=== PATIENT | male | born 1995 | race Caucasian/White ===

== ENCOUNTER 2017-04-06 14:33 | Emergency (ER) | payer BC ==
--- NOTE | 2017-04-06 15:05 | ERPHSYRPT ---
- History of Present Illness Time Seen by Provider: 04/06/17 14:54 Historian: patient Exam Limitations: no limitations Patient Subjective Stated Complaint: pt here for sorethroat for a couple days vomited x2 today. pt states last time he vomited it had blood in it,pt states he had bright red blood ,more than streaks Triage Nursing Assessment: pt alert, walked in, resp easy.skin w/d/p.abd soft with bs Physician History: 21-year-old white male who denies past medical or past surgical history arrives with complaint of sore throat going on for 2 days he states she's been having a nausea for approximately 3 weeks he states he vomited 2 times today he states on the second time he vomited blood he states he has pain in his throat which is sharp no fevers. Patient denies melena or hematochezia. Past medical history is negative past surgical history negative Social history positive for tobacco occasional alcohol use Timing/Duration: other (nausea for about 3 weeks sore throat for 2 days vomiting since today) Abdominal Pain Onset Location: other (no abdominal pain) Severity of Pain-Max: none Severity of Pain-Current: none Associated Symptoms: nausea, vomiting, other (hemetemesis x1 today) Previous symptoms: no prior history Allergies/Adverse Reactions: No Known Drug Allergies Allergy (Verified 04/06/17 14:48) Home Medications: Citalopram Hydrobromide [Citalopram HBr] 20 mg DAILY 04/06/17 [History] Trazodone HCl 50 mg [Desyrel 50 mg] 50 mg DAILY 04/06/17 [History] Hx Tetanus, Diphtheria Vaccination/Date Given: Yes (up to date) Hx Influenza Vaccination/Date Given: Yes Hx Pneumococcal Vaccination/Date Given: No Immunizations Up to Date: Yes - Review of Systems Constitutional: No Fever, No Chills Eyes: No Symptoms Ears, Nose, & Throat: No Symptoms, Throat Pain, No Ear Pain, No Ear Discharge, No Hearing Changes, No Tinnitus, No Nose Pain, No Nose Congestion, No Nose Discharge, No Sinus Drainage, No Epistaxis, No Mouth Pain, No Mouth Swelling, No Loose Teeth, No Throat Swelling, No Hoarse, No Painful Swallowing, No Snoring , No Stridor Respiratory: No Cough, No Dyspnea Cardiac: No Chest Pain, No Edema, No Syncope Abdominal/Gastrointestinal: Nausea, Vomiting, No Abdominal Pain, No Diarrhea, No Constipation, No Hematemesis, No Hematochezia, No Melena, No Dysphagia, No Appetite Changes Genitourinary Symptoms: No Dysuria Musculoskeletal: No Symptoms Skin: No Rash Neurological: No Dizziness, No Focal Weakness, No Sensory Changes Psychological: No Symptoms Endocrine: No Symptoms All Other Systems: Reviewed and Negative - Past Medical History Pertinent Past Medical History: No - Past Surgical History Past Surgical History: No - Social History Smoking Status: Current every day smoker Exposure to second hand smoke: Yes Drug Use: none Patient Lives Alone: No - Nursing Vital Signs Nursing Vital Signs: Initial Vital Signs Temperature 98.2 F 04/06/17 14:40 Pulse Rate 109 H 04/06/17 14:40 Respiratory Rate 18 04/06/17 14:40 Blood Pressure 110/70 04/06/17 14:40 O2 Sat by Pulse Oximetry 97 04/06/17 14:40 Pain Scale Pain Intensity 0 - Physical Exam General Appearance: no apparent distress, alert Eye Exam: PERRL/EOMI, eyes nml inspection, other (fundi unremarkable) Ears, Nose, Throat Exam: TMs normal, moist mucous membranes, dry mucous membranes, pharyngeal erythema, No TM abnormal (R), No TM abnormal (L) Neck Exam: normal inspection, non-tender, supple, full range of motion Respiratory Exam: normal breath sounds, lungs clear, No respiratory distress Cardiovascular Exam: regular rate/rhythm, normal heart sounds Gastrointestinal/Abdomen Exam: soft, No tenderness, No mass Rectal Exam: normal exam, No black stool, No blood Back Exam: normal inspection, normal range of motion, No CVA tenderness, No vertebral tenderness Extremity Exam: normal inspection, normal range of motion, pelvis stable Neurologic Exam: alert, oriented x 3, cooperative, building rigger II-XII nml as tested, normal mood/affect, nml cerebellar function, sensation nml, No motor deficits Skin Exam: normal color, warm, dry SpO2 Interpretation: normal (97%) SpO2: 97 Oxygen Delivery: Room Air Ordered Tests: Active Orders 24 hr Category Date Time Status IV Insertion STAT Care 04/06/17 14:58 Active Orthostatic Vital Signs STAT Care 04/06/17 15:00 Active AMYLASE Stat Lab 04/06/17 15:10 Completed CBC W DIFF Stat Lab 04/06/17 15:10 Completed CMP Stat Lab 04/06/17 15:10 Completed CULTURE, THROAT Stat Lab 04/06/17 15:12 Received LIPASE Stat Lab 04/06/17 15:10 Completed Occult Blood,Stool Other Stat Lab 04/06/17 15:40 Completed STREP SCREEN-BETA A Stat Lab 04/06/17 15:12 Completed Medication Summary Discontinued Medications Generic Name Dose Route Start Last Admin Trade Name Get PRN Reason Stop Dose Admin Sodium Chloride 1,000 mls @ 999 mls/hr 04/06/17 14:58 04/06/17 15:37 Sodium Chloride 0.9% 1000 Ml IV 04/06/17 15:58 999 mls/hr .Q1H1M STA Administration Sodium Chloride Confirm 04/06/17 15:36 Sodium Chloride 0.9% 1000 Ml Administered 04/06/17 15:37 Dose 1,000 mls @ ud .ROUTE .STK-MED ONE Lab/Rad Data: Laboratory Result Diagrams 04/06/17 15:10 04/06/17 15:10 Laboratory Results 04/06/17 04/06/17 04/06/17 Range/Units 15:40 15:12 15:10 WBC (4.0-10.5) K/mm3 RBC (4.1-5.6) M/mm3 Hgb (12.5-18.0) gm/dl Hct (42-50) % MCV (78-100) fl MCH (26-32) pg MCHC (32-36) g/dl RDW (11.5-14.0) % Plt Count (150-450) K/mm3 MPV (6-9.5) fl Gran % (36.0-66.0) % Lymphocytes % (24.0-44.0) % Monocytes % (0.0-12.0) % Eosinophils % (0.00-5.0) % Basophils % (0.0-0.4) % Basophils # (0-0.4) Sodium 140 (136-145) mEq/L Potassium 4.4 (3.5-5.1) mEq/L Chloride 103 (98-107) mEq/L Carbon Dioxide 31.3 (21-32) mEq/L Anion Gap 9.9 (5-15) MEQ/L BUN 13 (9-20) mg/dL Creatinine 1.15 (0.55-1.30) mg/dl Estimated GFR > 60 ML/MIN Glucose 95 (70-110) MG/DL Calcium 9.4 (8.5-10.1) mg/dL Total Bilirubin 1.10 H (0.2-1.0) mg/dL AST 24 (15-37) U/L ALT 24 (12-78) U/L Alkaline Phosphatase 82 (46-116) U/L Serum Total Protein 7.7 (6.4-8.2) gm/dL Albumin 4.3 (3.4-5.0) g/dL Amylase 53 (25-115) U/L Lipase 98 (73-393) U/L Stool Occult Blood NEGATIVE (Negative) Streptococcus Screen NEGATIVE (Negative) 04/06/17 Range/Units 15:10 WBC 9.7 (4.0-10.5) K/mm3 RBC 5.30 (4.1-5.6) M/mm3 Hgb 16.0 (12.5-18.0) gm/dl Hct 47.7 (42-50) % MCV 90.0 (78-100) fl MCH 30.2 (26-32) pg MCHC 33.5 (32-36) g/dl RDW 12.5 (11.5-14.0) % Plt Count 223 (150-450) K/mm3 MPV 9.9 H (6-9.5) fl Gran % 85.4 H (36.0-66.0) % Lymphocytes % 6.7 L (24.0-44.0) % Monocytes % 6.9 (0.0-12.0) % Eosinophils % 0.9 (0.00-5.0) % Basophils % 0.1 (0.0-0.4) % Basophils # 0.01 (0-0.4) Sodium (136-145) mEq/L Potassium (3.5-5.1) mEq/L Chloride (98-107) mEq/L Carbon Dioxide (21-32) mEq/L Anion Gap (5-15) MEQ/L BUN (9-20) mg/dL Creatinine (0.55-1.30) mg/dl Estimated GFR ML/MIN Glucose (70-110) MG/DL Calcium (8.5-10.1) mg/dL Total Bilirubin (0.2-1.0) mg/dL AST (15-37) U/L ALT (12-78) U/L Alkaline Phosphatase (46-116) U/L Serum Total Protein (6.4-8.2) gm/dL Albumin (3.4-5.0) g/dL Amylase (25-115) U/L Lipase (73-393) U/L Stool Occult Blood (Negative) Streptococcus Screen (Negative) - Progress Progress: improved Progress Note: 04/06/17 16:25 Patient's labs are all stable. Strep is negative. Patient receiving 1 L normal saline. Patient had been offered Zofran prior to arrival doesn't want any. Will await the orthostatic vital signs after normal saline is in plan discharge if stable plenty of fluids, Tylenol. 04/06/17 16:57 Patient's orthostatic vital signs are stable will discharge 04/06/17 16:59 Patient offered an antirheumatic he does not want any - Departure Time of Disposition: 16:58 Departure Disposition: Home Clinical Impression: Viral pharyngitis, Gastroenteritis Vomiting Qualifiers: Vomiting type: unspecified Vomiting Intractability: non-intractable Nausea presence: with nausea Qualified Code(s): R11.2 - Nausea with vomiting, unspecified Hematemesis Qualifiers: Nausea presence: with nausea Qualified Code(s): K92.0 - Hematemesis Condition: Fair Critical Care Time: No Referrals: HARRY DACOSTA [Primary Care Provider] - Instructions: Vomiting -- Adult Additional Instructions: Return home. Plenty of fluids, clear fluids only 24-48 hours if nausea and vomiting. Follow-up with your family doctor if symptoms no better in 24-48 hours worse or persist longer than 72 hours. Return for acute distress or for severe symptoms. Tylenol every 4 hours as needed for pain.
[2017-04-06 15:19] LABS: BASOPHIL % 0.1 % (0.0-0.4); Basophil (Absolute #) 0.01 (0-0.4); Eosinophil % 0.9 % (0.00-5.0); Eosinophil (Absolute #) 0.09 (0-0.5); Granulocyte Absolute (ANC) 8.24 (1.4-6.9); Granulocytes % 85.4 % (36.0-66.0); Hematocrit 47.7 % (42-50); Lymphocyte (Absolute #) 0.65 (1.0-4.6); Lymphocytes % 6.7 % (24.0-44.0); Mean Corpuscular Hemoglobin 30.2 pg (26-32); Mean Corpuscular Hgb Concent. 33.5 g/dl (32-36); Mean Platelet Volume 9.9 fl (6-9.5); Monocyte (Absolute #) 0.67 (0.0-1.3); Monocytes % 6.9 % (0.0-12.0); Platelet Count 223 K/mm3 (150-450); Red Cell Distribution Width 12.5 % (11.5-14.0); White Blood Count 9.7 K/mm3 (4.0-10.5)
[2017-04-06] MEDS ORDERED: Sodium Chloride 0.9% 1000 ML 1,000 ML ONE (15:36)
[2017-04-06] MEDS: Sodium Chloride 0.9% 1000 ML 1,000 ML IV STA (15:37)
[2017-04-06 15:42] LABS: ALBUMIN 4.3 g/dL (3.4-5.0); ALKALINE PHOSPHATASE 82 U/L (46-116); AMYLASE 53 U/L (25-115); ANION GAP 9.9 MEQ/L (5-15); BLOOD UREA NITROGEN 13 mg/dL (9-20); CHLORIDE 103 mEq/L (98-107); Calcium 9.4 mg/dL (8.5-10.1); Carbon Dioxide 31.3 mEq/L (21-32); Creatinine 1 1.15 mg/dl (0.55-1.30); EST GLOMERULAR FILTRATION RATE > 60 ML/MIN; Glucose 95 MG/DL (70-110); LIPASE 98 U/L (73-393); Potassium 4.4 mEq/L (3.5-5.1); SGOT/AST 24 U/L (15-37); SGPT/ALT 24 U/L (12-78); SODIUM 140 mEq/L (136-145); Total Protein 7.7 gm/dL (6.4-8.2)
[2017-04-06 17:25] VITALS: BP 96/47; PULSE 100; O2SAT 99
== END 2017-04-06 17:45 | disposition home or self-care (01) ==
LOC: ED 14:33
DX: J02.9 Acute pharyngitis, unspecified (principal); K52.9 Noninfective gastroenteritis and colitis, unspecified; R11.2 Nausea with vomiting, unspecified; K92.0 Hematemesis; Z79.899 Other long term (current) drug therapy; Z72.0 Tobacco use
CPT/HCPCS: 36000; 36415; 80053; 82150; 82272; 83690; 85025; 87070; 87430; 96360; 99284

== ENCOUNTER 2017-04-22 15:09 | Emergency (ER) | payer BC ==
[2017-04-22 15:35] LABS: BASOPHIL % 0.6 % (0.0-0.4); Basophil (Absolute #) 0.04 (0-0.4); Eosinophil % 1.9 % (0.00-5.0); Eosinophil (Absolute #) 0.12 (0-0.5); Granulocyte Absolute (ANC) 4.32 (1.4-6.9); Granulocytes % 69.3 % (36.0-66.0); Hematocrit 46.6 % (42-50); Hemoglobin 15.9 gm/dl (12.5-18.0); Lymphocyte (Absolute #) 1.28 (1.0-4.6); Lymphocytes % 20.5 % (24.0-44.0); Mean Cell Volume 88.6 fl (78-100); Mean Corpuscular Hemoglobin 30.2 pg (26-32); Mean Corpuscular Hgb Concent. 34.1 g/dl (32-36); Mean Platelet Volume 9.6 fl (6-9.5); Monocyte (Absolute #) 0.48 (0.0-1.3); Monocytes % 7.7 % (0.0-12.0); Platelet Count 259 K/mm3 (150-450); Red Blood Count 5.26 M/mm3 (4.1-5.6); Red Cell Distribution Width 12.2 % (11.5-14.0); White Blood Count 6.2 K/mm3 (4.0-10.5)
[2017-04-22] MEDS ORDERED: Sodium Chloride 0.9% 1000 ML 1,000 ML IV STA ×2 (15:36→16:41)
[2017-04-22] MEDS ORDERED: Sodium Chloride 0.9% 1000 ML 1,000 ML ONE ×2 (15:38→16:43)
[2017-04-22 15:42] LABS: Amphetamine,Urine NEG. (NEGATIVE); Barbiturate,Urine NEG. (NEGATIVE); Benzodiazepine,Urine NEG. (NEGATIVE); Cocaine,Urine NEG. (NEGATIVE); Methadone,Urine NEG. (NEGATIVE); Opiate,Urine NEG. (NEGATIVE); PCP,Urine NEG. (NEGATIVE); THC,Urine POS. (NEGATIVE)
[2017-04-22 15:59] LABS: ALBUMIN 4.3 g/dL (3.4-5.0); ALKALINE PHOSPHATASE 78 U/L (46-116); ANION GAP 13.8 MEQ/L (5-15); BLOOD UREA NITROGEN 10 mg/dL (9-20); CHLORIDE 106 mEq/L (98-107); Calcium 9.4 mg/dL (8.5-10.1); Carbon Dioxide 24.7 mEq/L (21-32); Creatinine 1 1.05 mg/dl (0.55-1.30); EST GLOMERULAR FILTRATION RATE > 60 ML/MIN; Glucose 83 MG/DL (70-110); SGOT/AST 32 U/L (15-37); SGPT/ALT 26 U/L (12-78); SODIUM 141 mEq/L (136-145); Total Protein 7.8 gm/dL (6.4-8.2)
--- NOTE | 2017-04-22 16:17 | ERPHSYRPT ---
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 STATES HE HAS BEEN TAKING A WEIGHT LOSS SUPPLEMENT. Triage Nursing Assessment: PT PINK, WARM, DRY. ALERT AND ORIENTED X3. PT ARRIVED IN WHEELCHAIR FROM WAITING ROOM. PUPILS PERRL. Physician History: 21-year-old white male brought by his family with complaints of syncope at work. According to patient and his family patient was at work he began to feel shaky and then he passed out. Patient apparently has not eaten today he states he has not been otherwise ill. It is noted that the patient is taking a dietary supplement. Patient also states he took the medication for depression was out eating this morning Past medical history includes depression Past surgical history is negative Social history is positive for tobacco use and occasional alcohol use. Timing/Duration: today Severity: moderate Modifying Factors: Improves With: other (patient did not eat this morning) Associated Symptoms: syncope, No nausea, No vomiting, No abdominal pain, No shortness of breath, No heartburn, No diaphoresis, No cough, No chills, No chest pain, No fever, No headaches, No loss of appetite, No malaise, No rash, No seizure, No weakness Allergies/Adverse Reactions: No Known Drug Allergies Allergy (Verified 04/22/17 15:23) Home Medications: Citalopram Hydrobromide [Citalopram HBr] 20 mg PO DAILY 04/06/17 [History] Hx Tetanus, Diphtheria Vaccination/Date Given: Yes (UP TO DATE) Hx Influenza Vaccination/Date Given: No Hx Pneumococcal Vaccination/Date Given: No Immunizations Up to Date: Yes - Review of Systems Constitutional: No Fever, No Chills Eyes: No Symptoms Ears, Nose, & Throat: No Symptoms Respiratory: No Cough, No Dyspnea Cardiac: Syncope, No Chest Pain, No Edema Abdominal/Gastrointestinal: No Abdominal Pain, No Nausea, No Vomiting, No Diarrhea Genitourinary Symptoms: No Dysuria Musculoskeletal: No Back Pain, No Neck Pain Skin: No Rash Neurological: Tremors, Other (syncope), No Dizziness, No Focal Weakness, No Gait Changes, No Headache, No Irritability, No Lethargy, No Paralysis, No Parasthesia, No Seizure, No Sensory Changes, No Speech Changes, No Tics, No Vertigo Psychological: No Symptoms Endocrine: No Symptoms All Other Systems: Reviewed and Negative - Past Medical History Pertinent Past Medical History: No - Past Surgical History Past Surgical History: No - Social History Smoking Status: Current every day smoker How long have you smoked: 4 Exposure to second hand smoke: No Drug Use: none Patient Lives Alone: No - Nursing Vital Signs Nursing Vital Signs: Initial Vital Signs Temperature 98.8 F 04/22/17 15:16 Pulse Rate 83 04/22/17 15:16 Respiratory Rate 20 04/22/17 15:16 Blood Pressure 138/81 04/22/17 15:16 O2 Sat by Pulse Oximetry 99 04/22/17 15:16 Pain Scale Pain Intensity 0 - Physical Exam General Appearance: no apparent distress, alert Eye Exam: PERRL/EOMI, eyes nml inspection Ears, Nose, Throat Exam: normal ENT inspection, TMs normal, pharynx normal, moist mucous membranes Neck Exam: normal inspection, non-tender, supple, full range of motion Respiratory Exam: normal breath sounds, lungs clear, No respiratory distress Cardiovascular Exam: regular rate/rhythm, normal heart sounds, normal peripheral pulses Gastrointestinal/Abdomen Exam: soft, normal bowel sounds, No tenderness, No mass Back Exam: normal inspection, normal range of motion, No CVA tenderness, No vertebral tenderness Extremity Exam: normal inspection, normal range of motion, pelvis stable Neurologic Exam: alert, oriented x 3, cooperative, normal mood/affect, nml cerebellar function, nml station & gait, sensation nml, No motor deficits, No sensory deficit, No disoriented, No confusion, No facial droop, No slurred speech, No aphasia, No dysarthria, No abnormal gait, No abnormal cerebellar tests, No abnormal teacher aide clerical II-XII Skin Exam: normal color, warm, dry, No rash Lymphatic Exam: No adenopathy SpO2 Interpretation: normal (99%) SpO2: 99 Oxygen Delivery: Room Air - Course Nursing assessment & vital signs reviewed: Yes EKG Interpreted by Me: RATE (96 bpm), Other (EKG: Sinus arrhythmia, 96 bpm, normal axis, no acute ST or T wave changes, essentially normal EKG) Ordered Tests: Active Orders 24 hr Category Date Time Status Branch Sales Manager STAT Care 04/22/17 15:24 Active Clean Catch Urine Specimen STAT Care 04/22/17 15:31 Active EKG-ER Only STAT Care 04/22/17 15:24 Active IV Insertion STAT Care 04/22/17 15:24 Active Orthostatic Vital Signs STAT Care 04/22/17 16:06 Active CBC W DIFF Stat Lab 04/22/17 15:31 Completed CMP Stat Lab 04/22/17 15:31 Completed Urine Triage Profile Stat Lab 04/22/17 15:32 Completed Medication Summary Generic Name Dose Route Start Last Admin Trade Name Freq PRN Reason Stop Dose Admin Sodium Chloride 1,000 mls @ 999 mls/hr 04/22/17 16:41 04/22/17 16:43 Sodium Chloride 0.9% 1000 Ml IV 04/22/17 17:41 999 mls/hr .Q1H1M STA Administration Discontinued Medications Generic Name Dose Route Start Last Admin Trade Name Freq PRN Reason Stop Dose Admin Sodium Chloride 1,000 mls @ 999 mls/hr 04/22/17 15:36 04/22/17 15:40 Sodium Chloride 0.9% 1000 Ml IV 04/22/17 16:36 999 mls/hr .Q1H1M STA Administration Sodium Chloride Confirm 04/22/17 15:38 Sodium Chloride 0.9% 1000 Ml Administered 04/22/17 15:39 Dose 1,000 mls @ ud .ROUTE .STK-MED ONE Sodium Chloride Confirm 04/22/17 16:43 Sodium Chloride 0.9% 1000 Ml Administered 04/22/17 16:44 Dose 1,000 mls @ ud .ROUTE .STK-MED ONE Lab/Rad Data: Laboratory Result Diagrams 04/22/17 15:31 04/22/17 15:31 Laboratory Results 04/22/17 04/22/17 04/22/17 Range/Units 15:32 15:31 15:31 WBC 6.2 (4.0-10.5) K/mm3 RBC 5.26 (4.1-5.6) M/mm3 Hgb 15.9 (12.5-18.0) gm/dl Hct 46.6 (42-50) % MCV 88.6 (78-100) fl MCH 30.2 (26-32) pg MCHC 34.1 (32-36) g/dl RDW 12.2 (11.5-14.0) % Plt Count 259 (150-450) K/mm3 MPV 9.6 H (6-9.5) fl Gran % 69.3 H (36.0-66.0) % Lymphocytes % 20.5 L (24.0-44.0) % Monocytes % 7.7 (0.0-12.0) % Eosinophils % 1.9 (0.00-5.0) % Basophils % 0.6 (0.0-0.4) % Basophils # 0.04 (0-0.4) Sodium 141 (136-145) mEq/L Potassium 4.0 (3.5-5.1) mEq/L Chloride 106 (98-107) mEq/L Carbon Dioxide 24.7 (21-32) mEq/L Anion Gap 13.8 (5-15) MEQ/L BUN 10 (9-20) mg/dL Creatinine 1.05 (0.55-1.30) mg/dl Estimated GFR > 60 ML/MIN Glucose 83 (70-110) MG/DL Calcium 9.4 (8.5-10.1) mg/dL Total Bilirubin 0.60 (0.2-1.0) mg/dL AST 32 (15-37) U/L ALT 26 (12-78) U/L Alkaline Phosphatase 78 (46-116) U/L Serum Total Protein 7.8 (6.4-8.2) gm/dL Albumin 4.3 (3.4-5.0) g/dL Urine Opiates Level NEG. (NEGATIVE) Ur Methadone NEG. (NEGATIVE) Urine Barbiturates NEG. (NEGATIVE) Ur Phencyclidine (PCP) NEG. (NEGATIVE) Urine Amphetamine NEG. (NEGATIVE) U Benzodiazepine Level NEG. (NEGATIVE) Urine Cocaine NEG. (NEGATIVE) Urine Marijuana (THC) POS. (NEGATIVE) - Progress Progress: improved Progress Note: 04/22/17 16:15 This is a 21-year-old white male with complaint of syncopal episode at work. Patient apparently did not eat this morning he took his antidepressant medicine went to work. While at work he began to feel shaky and passed out. He is currently alert oriented 3 he has full range of motion to all extremities no focal neurologic findings are noted. Patient is being given IV normal saline, Patient's EKG sinus arrhythmia 96 bpm normal axis no acute ST or T wave changes. Will await remaining labs and have the nurses check orthostatic vital signs. 04/22/17 17:28 Patient looking better after IV fluids. Patient's labs essentially normal with the exception of THC on the patient's drug screen. Will discharge patient. Mother is aware of positive drug screen. - Departure Time of Disposition: 17:29 Departure Disposition: Home Clinical Impression: Vasovagal syncope, Volume depletion Condition: Fair Critical Care Time: No Referrals: HARRY DACOSTA [Primary Care Provider] - Instructions: Syncope (Fainting) (DC) Additional Instructions: Return home. Plenty of fluids. Follow-up with your family doctor. No heights. No driving. No hazardous activity. Take showers instead of baths. Do not engage in any activity which might harm yourself or others. Return for acute distress or for severe symptoms.
[2017-04-22 17:31] VITALS: O2SAT 99
[2017-04-22 17:43] VITALS: BP 134/72; PULSE 93
== END 2017-04-22 17:43 | disposition home or self-care (01) ==
LOC: ED 15:09
DX: R55 Syncope and collapse (principal); E86.9 Volume depletion, unspecified
CPT/HCPCS: 36000; 36415; 80053; 80307; 85025; 93005; 93041; 96360; 96361; 99284

== ENCOUNTER 2019-03-07 01:56 | Emergency (ER) | payer BC ==
[2019-03-07] MEDS ORDERED: Sodium Chloride 0.9% 1000 ML 1,000 ML IV STA ×2 (02:03→03:31)
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
[2019-03-07 02:19] LABS: Lactic Acid 1.9 (0.4-2.0)
[2019-03-07 02:21] LABS: Absolute Neutrophil Ct (ANC) 11.51 (1.4-6.9); BASOPHIL % 0.1 % (0.0-0.4); Basophil (Absolute #) 0.02 (0-0.4); Eosinophil % 1.4 % (0.00-5.0); Eosinophil (Absolute #) 0.19 (0-0.5); Hematocrit 47.3 % (42-50); Hemoglobin 16.6 gm/dl (12.5-18.0); Lymphocyte (Absolute #) 1.32 (1.0-4.6); Lymphocytes % 9.7 % (24.0-44.0); Mean Cell Volume 87.6 fl (78-100); Mean Corpuscular Hemoglobin 30.7 pg (26-32); Mean Corpuscular Hgb Concent. 35.1 g/dl (32-36); Mean Platelet Volume 9.2 fl (6-9.5); Monocyte (Absolute #) 0.63 (0.0-1.3); Monocytes % 4.6 % (0.0-12.0); Neutrophil % 84.2 % (36.0-66.0); Platelet Count 259 K/mm3 (150-450); Red Cell Distribution Width 12.3 % (11.5-14.0); White Blood Count 13.7 K/mm3 (4.0-10.5)
[2019-03-07] MEDS ORDERED: Sodium Chloride 0.9% 1000 ML 1,000 ML ONE ×2 (02:22→03:32)
[2019-03-07 02:30] LABS: INR 1.07 (0.8-3.0); PROTIME 12.1 SECONDS (8.83-12.87)
[2019-03-07 02:32] LABS: PTT 33.6 SECONDS (24.1-36.1)
[2019-03-07 02:36] LABS: ACETAMINOPHEN < 10 ug/ml (10-30); ALBUMIN 4.7 g/dL (3.5-5.0); ALKALINE PHOSPHATASE 90 U/L (38-126); ANION GAP 14.1 MEQ/L (5-15); BLOOD UREA NITROGEN 13 mg/dL (9-20); CHLORIDE 104 mmol/L (98-107); Carbon Dioxide 29 mmol/L (22-30); Creatinine 1 1.06 mg/dL (0.66-1.25); ETHYL ALCOHOL 64 mg/dL (0-10); Glucose 101 mg/dL (74-106); Potassium 4.1 mmol/L (3.5-5.1); SALICYLATE < 1.0 mg/dL (2-20); SGOT/AST 32 U/L (17-59); SGPT/ALT 23 U/L (0-50); SODIUM 143 mmol/L (137-145); Total Protein 8.2 g/dL (6.3-8.2)
[2019-03-07 02:36] LABS: Appearance CLEAR (CLEAR); Bilirubin NEGATIVE (NEGATIVE); Blood NEGATIVE Ery/ul (0-5); Glucose NEGATIVE (NEGATIVE); Ketones NEGATIVE (NEGATIVE); Leukocyte Esterase NEGATIVE (NEGATIVE); Mucus SLIGHT /HPF (NEGATIVE); Nitrite NEGATIVE (NEGATIVE); Protein,Urine Dip NEGATIVE (Negative); Specific Gravity 1.008 (1.005-1.025); Urobilinogen NEGATIVE mg/dL (0-1)
[2019-03-07 02:44] LABS: NT PRO BNP 22.4 pg/mL (0-450)
[2019-03-07 02:48] LABS: Amphetamine,Urine NEGATIVE (NEGATIVE); Barbiturate,Urine NEGATIVE (NEGATIVE); Benzodiazepine,Urine NEGATIVE (NEGATIVE); Cocaine,Urine NEGATIVE (NEGATIVE); Methadone,Urine NEGATIVE (NEGATIVE); Opiate,Urine NEGATIVE (NEGATIVE); PCP,Urine NEGATIVE (NEGATIVE); THC,Urine NEGATIVE (NEGATIVE)
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
[2019-03-07 11:36] VITALS: BP 104/68; PULSE 90; O2SAT 98
== END 2019-03-07 12:05 | disposition home or self-care (01) ==
LOC: ED 01:56
DX: F32.9 Major depressive disorder, single episode, unspecified (principal); R45.851 Suicidal ideations; F10.129 Alcohol abuse with intoxication, unspecified
CPT/HCPCS: 36000; 36415; 51702; 70450; 70486; 71045; 80053; 80307; 81001; 82550; 82962; 83605; 83880; 84484; 85025; 85610; 85730; 87086; 90791; 93005; 93041; 96360; 96361; 99285; 99291; 99292; G0481; Q3014; 96374; G0480

== ENCOUNTER 2024-01-28 12:55 | Emergency (ER) | payer BC ==
[2024-01-28 13:10] VITALS: BP 166/86; PULSE 89; TEMP 98.1; O2SAT 98
--- NOTE | 2024-01-28 13:25 | ERPHSYRPT ---
- History of Present Illness Time Seen by Provider: 01/28/24 13:21 Source: patient Exam Limitations: no limitations Patient Subjective Stated Complaint: Pt cut his left thumb at the knuckle Triage Nursing Assessment: Pt brought to the ER by his dad, hypertensive, rates pain as 03/22, bleeding controlled, approx 1.5cm laceration to the posterior knuckle, pulses normal, denies any other injuries Physician History: Pt cut his left thumb at the knuckle with razor blade Timing/Duration: today Associated Symptoms: denies symptoms Allergies/Adverse Reactions: No Known Drug Allergies Allergy (Verified 01/28/24 13:10) Home Medications: No Reportable Medications [No Reported Medications] 01/28/24 [History] Hx Tetanus, Diphtheria Vaccination/Date Given: Yes (UP TO DATE) Hx Influenza Vaccination/Date Given: No Hx Pneumococcal Vaccination/Date Given: No Travel Risk - International Travel Have you traveled outside of the country in past 3 weeks: No - Emerging Infectious Disease Are you exhibiting symptoms associated with any current EIDs: No - Review of Systems Constitutional: No Symptoms Eyes: No Symptoms Ears, Nose, & Throat: No Symptoms Respiratory: No Symptoms Cardiac: No Symptoms Abdominal/Gastrointestinal: No Symptoms Genitourinary Symptoms: No Symptoms Musculoskeletal: No Symptoms Skin: Other (1 cm superficial laceration on left thumb knuckle.) Neurological: No Symptoms - Past Medical History Pertinent Past Medical History: Yes Psycho-Social History: Depression - Past Surgical History Past Surgical History: No - Social History Smoking Status: Current every day smoker How long have you smoked: vapes Exposure to second hand smoke: Yes Drug Use: none Patient Lives Alone: No - Social Determinants of Health Will the patient participate in the screening: Yes Do you worry about a steady place to live?: No Do you have any problems with any of the following?: No known problems In the past 12 months,have you had to go without utilities?: No Transportation Issues: No Has anyone in your support network made you feel unsafe?: No Have you or anyone in your house had to go without enough: No - Nursing Vital Signs Nursing Vital Signs: Initial Vital Signs Temperature 98.1 F 01/28/24 13:02 Pulse Rate 89 01/28/24 13:02 Blood Pressure 166/86 01/28/24 13:02 O2 Sat by Pulse Oximetry 98 01/28/24 13:02 Pain Scale Pain Intensity 1 - Physical Exam General Appearance: no apparent distress Eye Exam: PERRL/EOMI Ears, Nose, Throat Exam: normal ENT inspection Neck Exam: normal inspection Respiratory Exam: normal breath sounds Cardiovascular Exam: regular rate/rhythm Extremity Exam: normal inspection Neurologic Exam: alert, oriented x 3 Skin Exam: normal color, laceration (1 cm on left knucle of thumb) SpO2 Interpretation: normal SpO2: 98 O2 Delivery: Room Air Procedures - Laceration/Wound Repair Left Dorsal Finger Time of Procedure: 13:24 Wound Location: Left (thumb) Wound Length (cm): 1 Wound's Depth, Shape: superficial Wound Explored: clean Irrigated: Yes Hibiclens Prep: Yes Wound Repaired With: Steri-strips, Dermabond Splint Applied?: Yes - Course Nursing assessment & vital signs reviewed: Yes Ordered Tests: Active Orders 24 hr Category Date Time Status Splint STAT Care 01/28/24 13:15 Active Wound Care STAT Care 01/28/24 13:14 Active - Progress Progress: improved Counseled pt/family regarding: diagnosis, need for follow-up Medical Desision Making - Diagnostic Testing Diagnostic test were ordered, analyzed, and reviewed by me: No - Risk of complications Minimal Risk: Minimal risk of morbidity - Departure Departure Disposition: Home Clinical Impression: Laceration of left thumb without complication Qualifiers: Encounter type: initial encounter Qualified Code(s): S61.012A - Laceration without foreign body of left thumb without damage to nail, initial encounter Condition: Stable Critical Care Time: No Referrals: LAQUITA KRAMER MD [Primary Care Provider] - Follow up with PCP 5 days Instructions: Laceration Repair With Glue (DC), Wound Care (DC) Additional Instructions: Discharge/Care Plan LYRIC LOYOLA was seen on 01/28/24 in the Emergency Room. The patient was counseled regarding Diagnosis,Lab results, Imaging studies, need for follow up and when to return to the Emergency Room. Prescriptions given: Discharge Note I have spoken with the patient and/or caregivers. I have explained the patient's condition, diagnosis and treatment plan based on the information available to me at this time. I have answered the patient's and/or caregiver's questions and addressed any concerns. The patient and/or caregivers have as good understanding of the patient's diagnosis, condition and treatment plan as can be expected at this point. The vital signs have been stable. The patient's condition is stable and appropriate for discharge from the emergency department. The patient will pursue further outpatient evaluation with the primary care physician or other designated or consulting physician as outlined in the discharge instructions. The patient and/or caregivers are agreeable to this plan of care and follow-up instructions have been explained in detail. The patient and/or caregivers have received these instruction. The patient/and or caregivers are aware that any significant change in condition or worsening of symptoms should prompt an immediate return to this or the closest emergency department or call 911. LYRIC LOYOLA was seen on 01/28/24 n the Emergency Room. At that time you were treated for an emergent condition, during your visit Laboratory, Radiology and/or other procedures may have been ordered. It is very important that you follow-up with your Primary Care Physician LAQUITA KRAMER within the next 24- 48 hours to review your Emergency Room visit and the final results of testing that was ordered. Some test results such as Urine Cultures, Blood Cultures, and other cultures if ordered will not be finalized for 24-48 hours. If you do not have a Primary Care Provider please call the medical records department at [phone] ext [phone] to obtain a copy of your results or you may sign into our patient portal to obtain these results by visiting us @ [email or web address] and completing the following steps: 1. Click on the Patient Portal link 2. Click the Patient Self Enrollment Link to complete the enrollment form and entering your 3. Once the enrollment form is completed you will receive an email with a temporary ID and password at the email address you provided. 4. Next choose a user name and password. Your user name must be at least 4 characters long and your password must be at least 4 characters long. 5. Choose a security question from the list and provide your answer to the question. If you already have signed into the Health Portal you may access your Health Care Information 03/10 by the following steps: 1. Login to our website @ [email or web address] 2. Enter your original user name and password. FAQS [facility] Health Portal is an online tool that contains your Lab Results, Radiology Reports, Visit History, Discharge Instructions and Health Summary Lab and Radiology Results will not be available for 72 hours on the portal. The Portal is a secure site, passwords are encryted and URLs are re-written so they cannot be copied and pasted. You and authorized family members are the only ones who can access your Portal. Also there is a timeout feature that protects your information if you leave the Portal page open. If you have technical difficulty please use the Contact Us link on the page this will allow you to submit any questions you have regarding the Portal or you may contact the Medical Record Department at [phone] ext [phone].
== END 2024-01-28 13:30 | disposition home or self-care (01) ==
LOC: ED 12:55
DX: S61.012A Laceration without foreign body of left thumb without damage to nail, initial encounter (principal); W45.8XXA Other foreign body or object entering through skin, initial encounter
CPT/HCPCS: 12001; 99282; 99283